=== PATIENT | female | born 1995 | race Caucasian/White ===

== ENCOUNTER 2017-06-18 12:05 | Emergency (ER) | payer SELFPAY ==
[~2017-06-18] VITALS: Ht 157.5 cm; Wt 82.0 kg
[~2017-06-18 12:05] MED LIST: PEN-VEE K,VEET500 MG PO; VENTOLIN HFA18 GM IH
[2017-06-18 15:09] LABS: HEMATOCRIT 39.1 % (36.0-46.0); HEMOGLOBIN 13.5 G/DL (11.9-15.5); MCH 30.2 PG (29.0-34.0); MCHC 34.5 G/DL (30.0-36.0); MCV 87.5 FL (83-99); PLATELET COUNT 278 K/uL (156-360); RBC DIS.WIDTH-CV 12.2 % (11.8-14.6); RBC DIS.WIDTH-SD 39.2 % (39-53); RED BLOOD COUNT 4.47 M/uL (3.80-5.20); WHITE BLOOD COUNT 8.8 K/uL (4.1-10.2)
[2017-06-18 15:18] LABS: CHLORIDE 93 mEq/L (99-109); POTASSIUM 3.9 mEq/L (3.7-5.4); SODIUM 126 mEq/L (136-147)
[2017-06-18 15:31] LABS: QUANTITATIVE HCG < 4.0 MIU/ML
[2017-06-18 15:38] LABS: GLUCOSE 107 mg/dL (70-99)
[2017-06-18 15:42] LABS: CREATININE 0.7 mg/dL (0.6-1.3); GFR ESTIMATE (CALCULATED) > 59 mL/min/
[2017-06-18 15:43] LABS: UREA NITROGEN (BUN) 12 mg/dL (9-23)
[2017-06-18 15:56] LABS: APPEARANCE SL.HAZY ((CLEAR)); BILIRUBIN NEGATIVE; BLOOD NEGATIVE; COLOR YELLOW ((YELLOW)); GLUCOSE (STRIP) NEGATIVE; KETONES NEGATIVE; LEUKOCYTES NEGATIVE; NITRITE NEGATIVE; PROTEIN (STRIP) NEGATIVE; SPECIFIC GRAVITY 1.032 (1.000-1.030); UROBILINOGEN 0.2 MG/DL (0.2-1.0)
[2017-06-18 16:02] LABS: BACTERIA NONE SEEN /HPF; EPITHELIAL CELLS 2+ /HPF; MUCUS TRACE /LPF; WHITE BLOOD CELLS 0-5 /HPF (0-5)
[2017-06-18 18:04] LABS: POTASSIUM 3.6 mEq/L (3.7-5.4)
[2017-06-18 18:06] LABS: GLUCOSE 90 mg/dL (70-99)
[2017-06-18 18:07] LABS: CHLORIDE 106 mEq/L (99-109); SODIUM 138 mEq/L (136-147)
[2017-06-18 18:10] LABS: CREATININE 0.7 mg/dL (0.6-1.3); GFR ESTIMATE (CALCULATED) > 59 mL/min/
[2017-06-18 18:11] LABS: UREA NITROGEN (BUN) 9 mg/dL (9-23)
[2017-06-18] MEDS ORDERED: ZOFRAN ODT4 MG PO (18:26)
[2017-06-18 19:00] VITALS: BP 110/80
== END 2017-06-18 19:03 | disposition home or self-care (01) ==
LOC: EME 12:05
PROVIDERS: Nurse Practitioner Family
DX: E87.1 Hypo-osmolality and hyponatremia (principal); J45.909 Unspecified asthma, uncomplicated
CPT/HCPCS: 80048; 80048 91; 81003; 84702; 85027; 99281; 99284; J2405; J7030